=== PATIENT | female | born 1995 | race Caucasian/White ===

== ENCOUNTER → 2022-08-23 12:22 | Outpatient (CLI) | payer SELFPAY ==
[2022-08-23 13:08] LABS: Basophils # 0.1 K/mm3 (0-0.2); Eosinophils # 0.4 K/mm3 (0.0-0.4); Eosinophils % 2.9 % (0.1-12.0); Hematocrit 38.9 % (37.0-47.0); Hemoglobin 12.4 g/dL (12.2-16.2); Lymphocytes # 2.7 K/mm3 (0.7-4.5); Lymphocytes % 20.5 % (10-50); Mean Corpuscular HGB Conc 31.9 g/dL (31.8-35.4); Mean Corpuscular Hemoglobin 27.6 pg (27.0-31.2); Mean Corpuscular Volume 86.5 fl (81-99); Mean Platelet Volume 7.5 fl (7.4-10.4); Monocytes # 0.6 K/mm3 (0.1-1.0); Monocytes % 4.3 % (1.7-9.3); Neutrophils # 9.3 K/mm3 (1.8-7.8); Neutrophils % 71.3 % (37.0-80.0); Platelet Count 383 K/mm3 (142-424); Red Cell Distribution Width 14.7 % (11.5-17.5); White Blood Count 13.1 K/mm3 (4.8-10.8)
[2022-08-23 13:34] LABS: Alanine Aminotransferase 22 U/L (12-78); Albumin Level 4.1 g/dl (3.5-5.0); Albumin/Globulin Ratio 1.4 (1.1-1.8); Alkaline Phosphatase 84 U/L (38-126); Anion Gap 11.4 mEq/L (5-15); Aspartate Amino Transferase 26 U/L (14-36); Blood Urea Nitrogen 15 mg/dl (7-17); Calcium 9.6 mg/dl (8.4-10.2); Carbon Dioxide 28 mmol/L (22.0-30.0); Chloride 104 mmol/L (98-107); Creatine Kinase 73 U/L (30-135); Estimated Glomerular Filt Rate 101 ml/min (>60); GFR (African American) 122 ML/MIN (>60); Globulin 2.9 g/dL (1.3-3.2); Glucose 94 mg/dl (74-100); Magnesium 1.8 mg/dl (1.6-2.3); Phosphorous 3.9 mg/dl (2.5-4.5); Potassium 4.4 mmoL/L (3.5-5.1); Sodium 139 mmol/L (136-145); Uric Acid 3.9 mg/dl (2.5-6.2)
[2022-08-23 13:45] LABS: Bilirubin,Total 0.1 mg/dl (0.2-1.3)
[2022-08-23 13:57] LABS: Hemoglobin A1C 5.1 % (4.0-6.0)
[2022-08-23 14:05] LABS: Thyroid Stimulating Hormone 2.73 uIU/mL (0.465-4.68)
[2022-08-23 14:41] LABS: Vitamin B12 527 pg/mL (239-931)
[2022-08-23 14:42] LABS: Folate > 20.00 ng/mL
[2022-08-24 11:41] LABS: Homocyst(e)ine 7.5 umol/L (0.0-14.5); Sex Hormone Binding Globulin 41.9 nmol/L (24.6-122.0); Testosterone,Total 17 ng/dL (13-71); Triiodothyronine (T3) Free 3.5 pg/mL (2.0-4.4)
[2022-08-26 04:13] LABS: C-Reactive Protein, Cardiac 16.76 mg/L (0.00-3.00)
[2022-08-27 16:14] LABS: Testosterone,Free 0.4 pg/mL (0.0-4.2)
== END ==
LOC: LAB 12:25
PROVIDERS: PCP Family Medicine; Visit Provider Family Medicine
DX: E66.01 Morbid (severe) obesity due to excess calories (principal)
CPT/HCPCS: 36415; 80053; 82306; 82550; 82607; 82626; 82670; 82746; 83036; 83090; 83735; 84100; 84144; 84270; 84402; 84403; 84443; 84481; 84550; 85025; 86140; 86141

== ENCOUNTER → 2022-08-25 12:42 | Outpatient (CLI) | payer OTHER, SELFPAY | PROVIDERS: PCP Family Medicine; Visit Provider Family Medicine | DX: E66.01 Morbid (severe) obesity due to excess calories (principal) | CPT/HCPCS: 36415 ==